=== PATIENT | female | born 1985 ===

== ENCOUNTER → 2022-07-24 09:46 | Outpatient (BNVA) | payer OTHER, SELFPAY | PROVIDERS: PCP Family Medicine; Visit Provider Family Medicine | DX: K51.90 Ulcerative colitis, unspecified, without complications (principal); R00.2 Palpitations; Z51.81 Encounter for therapeutic drug level monitoring; E03.9 Hypothyroidism, unspecified | CPT/HCPCS: 80053; 83735; 84439; 84443; 85025; 86141 ==

== ENCOUNTER 2022-09-04 11:55 | Outpatient (CLI) | payer OTHER, SELFPAY ==
--- NOTE | 2022-09-04 12:08 | XR_ITS ---
WS: [id number] Exam: XR knee LT 3V* [id number] Date/Time of Exam: 09/04/2022 12:09 PM Reason For Exam: Left knee pain - includ sunset view No fracture or dislocation. The joint compartments are preserved. No joint effusion. XR/XR knee LT 3V* [id number] IMPRESSION: 1. Negative left knee.
--- NOTE | 2022-09-04 12:08 | XR_ITS ---
WS: [id number] Exam: XR knee RT 3V* [id number] Date/Time of Exam: 09/04/2022 12:09 PM Reason For Exam: Knee pain No fracture or dislocation. The joint compartments are well-maintained. No joint effusion. XR/XR knee RT 3V* [id number] IMPRESSION: 1. Negative right knee.
== END 2022-09-04 11:56 | disposition home or self-care (01) ==
LOC: RAD 12:02
PROVIDERS: PCP Family Medicine; Visit Provider Family Medicine
DX: M25.562 Pain in left knee (principal); M25.561 Pain in right knee
CPT/HCPCS: 73562